=== PATIENT | male | born 1965 | race Caucasian/White ===

== ENCOUNTER 2017-03-12 18:09 | Observation (INO) ==
[2017-03-12] MEDS ORDERED: Naloxone 0.4 MG/ML INJ IVP PRN (23:18)
[2017-03-12] MEDS ORDERED: *HR* Promethazine 25 MG/ML VIAL IVP PRN (23:18)
[2017-03-12] MEDS ORDERED: Acetaminophen 325 MG TABLET PO PRN (23:18)
[2017-03-12] MEDS ORDERED: *HR* Morphine 2 MG/ML SYRINGE IVP PRN (23:18)
[2017-03-12] MEDS ORDERED: Ondansetron 4 MG/2 ML VIAL IVP PRN (23:18)
[2017-03-12] MEDS ORDERED: 0.9 % Sodium Chloride 1,000 ML IVC SCH (23:30)
--- NOTE | 2017-03-12 23:33 | Internal Med History&Physical ---
Date of Encounter: 03/12/17 Time of Encounter: 23:25 Assessment and Plan (1) Syncope Current visit: Yes Status: Acute Will place the pt into tele for observation Check serial troponin cont ASA, Statin check 2 D Echo in AM check Carotid doppler Reviewed his CT of Head, CTA of Chest Reviewed his Lbas - D- dimer is significnatly elevated - CTA - negative for PE his story is little concerned for seizure activity too will get EEG in AM Ortho stats daily Neuro checks Q4hr Qualifiers: Qualified Code(s): R55 - Syncope and collapse (2) Elevated d-dimer Current visit: Yes Status: Acute CTA negative for PE will get Venous doppler (3) Dehydration Current visit: No Status: Acute started him on IV fluids (4) HTN (hypertension) Current visit: Yes Status: Acute resumed home meds Qualifiers: Hypertension type: essential hypertension Qualified Code(s): I10 - Essential (primary) hypertension (5) DM2 (diabetes mellitus, type 2) Current visit: Yes Status: Acute resumed home meds will check HbA1C in AM Qualifiers: Qualified Code(s): E11.9 - Type 2 diabetes mellitus without complications (6) HLD (hyperlipidemia) Current visit: Yes Status: Acute Qualifiers: Hyperlipidemia type: unspecified Qualified Code(s): E78.5 - Hyperlipidemia , unspecified (7) Lymph nodes enlarged Current visit: Yes Status: Acute Noticed enlarged precarinal lymph node need f/u CT of Lung in 3-6 months Internal Medicine - H&P: HPI Chief complaint: Syncope Admitted From: Emergency Dept Plans for Post Hospital Care: Home History of present illness: Mr. Thomas is a 51 year old male with known PMH of DM2, HTN, HLD who recently had Rhino speto plasty in [facility], who was taken to [facility] by EMS after pt's found him on unresponsive for 2 minutes. As per pt and he did take a shower and then after the shower went out to the living room. He noted to his that he did not feel well and his color seemed off according to her. He then felt like he was getting have diarrhea so he went back to the bathroom on the way back to the bathroom he lay down on the ground. He had been feeling lightheaded. went into check on him in the bathroom and found him on the ground and said that he was having his eyes rolled back in his head, twitching the whole body, as well as few jerky movements and he was non responsive. Pt also felt confused for few minutes after that. He also mentioned he had long surgery , since then had b/l calf pain which resolved now. However at [facility] his D- Dimer significantly elevated. His CTA of chest did not show any PE. He was sent over out hospital for further work up. Past Med Surg Social Fam HX - Past Medical History Medical history: diabetes, GERD, hyperlipidemia, hypertension, kidney stones, other Psychiatric history: no psych history - Past Surgical History Surgical History: orthopedic, other, vasectomy - Social History Smoking Status: Never smoker Smokeless Tobacco Status: No Alcohol use: rarely Drug use: none - Family History Father Hx Family Endocrine Disorder: Yes (DIABETES MELLITUS.) Internal Medicine - H&P: Meds Aspirin [Lo-Dose Aspirin EC] 81 mg PO DAILY 03/12/17 [History] Atorvastatin [Lipitor] 40 mg PO HS 03/12/17 [History] Docusate [Colace] 100 mg PO BID PRN 03/12/17 [History] Ezetimibe [Zetia] 10 mg PO DAILY 03/12/17 [History] Lisinopril [Zestril] 40 mg PO DAILY 03/12/17 [History] Meloxicam [Mobic] 15 mg PO DAILY 03/12/17 [History] [place]-3S/Dha/Epa/Fish Oil/D3 [Fish Eay-Tbynf-6-Vit D Softgel] 1 each PO DAILY [History] Oxycodone HCl/Acetaminophen [Percocet 5-325 mg Tablet] 1 each PO Q4H PRN [History] Pantoprazole Sodium [Protonix] 20 mg PO DAILY 03/12/17 [History] Sitagliptin Phos/Metformin HCl [Janumet 50-1,000 mg Tablet] 2 each PO DAILY [History] cephALEXin [Keflex] 500 mg PO BID 03/12/17 [History] 3 Allergy/AdvReac Type Severity Reaction Status Date / Time No Known Allergies Allergy Verified 03/12/17 13:09 All Systems PM: A 10-system review of systems was performed and is negative for pertinent findings except as documented above in the HPI. Review of systems: All the systems are reviewed everything is benign except the systems and symptoms I mentioned in the history of present illness - Constitutional Vitals: Temp Pulse Resp BP Pulse Ox 98.0 F 94 16 127/84 96 03/12/17 19:55 03/12/17 19:55 03/12/17 19:55 03/12/17 19:55 03/12/17 19:55 General appearance: Present: A&O X 3, no acute distress, answers questions appropriately - Head Head exam: Present: atraumatic, normal inspection - Neck Neck exam general surgery: Present: supple - Respiratory Respiratory exam: Present: CTAB. Absent: accessory muscle use, rales, rhonchi, wheezes - Cardiovascular Cardiovascular exam: Present: RRR, +S1, +S2. Absent: diastolic murmur, gallop, rubs, systolic murmur - GI/Abdominal GI/Abdominal exam: Present: normal bowel sounds, soft, no peritoneal signs. Absent: distended, tenderness - Extremities Exam Extremities exam: Absent: calf tenderness, pedal edema, tenderness - Back Exam Back exam: Absent: CVA tenderness (L), CVA tenderness (R) - Neurological Exam Neurological exam: Present: alert, oriented X3, no focal deficits - Psychiatric Psychiatric exam: Present: normal affect, normal mood
[2017-03-13] MEDS: *HR* HYDROcodone/Acet 5/325 mg TABLET PO PRN ×2 (00:16→11:12)
[2017-03-13] MEDS: Aspirin Enteric Coated 81 MG Tablet PO SCH ×2 (00:18→11:03)
[2017-03-13] MEDS: cephALEXin 500 MG CAPSULE PO SCH ×2 (00:18→11:03)
[2017-03-13 01:21] LABS: BUN/Creatinine Ratio 13 (6-26); Blood Urea Nitrogen 11 mg/dL (8-26); Calcium 9.3 mg/dL (8.6-10.8); Carbon Dioxide 23 mEq/L (19-29); Chloride 106 mEq/L (98-109); Chol/HDL Ratio 4.9 (0-4.9); Cholesterol 131 mg/dL (< 200); Glucose 169 mg/dL (70-99); HDL Cholesterol 27 mg/dL (40-59); LDL Cholesterol,Calculated 53 mg/dL (0-99); Magnesium 1.7 mg/dL (1.6-2.6); Osmolality,Calculated 287 (280-300); Sodium 137 mEq/L (136-145); Triglycerides 254 mg/dL (< 150); eGFR For African Americans > 60 (> 60); eGFR For Non-African Americans > 60 (> 60)
[2017-03-13] MEDS ORDERED: *HR* SitaGLIPtin 100 MG TABLET PO SCH (08:00)
[2017-03-13] MEDS ORDERED: *HR* Metformin 500 MG TABLET PO SCH (08:00)
[2017-03-13] MEDS ORDERED: [UNRECOGNIZED DRUG - OTHER] PO SCH (09:00)
[2017-03-13] MEDS ORDERED: CHOLECALCIFEROL PO SCH (09:00)
[2017-03-13] MEDS ORDERED: Lisinopril 20 MG TABLET PO SCH (09:00)
[2017-03-13] MEDS ORDERED: FISH OIL PO SCH (09:00)
--- NOTE | 2017-03-13 14:55 | EEG/EMG/Oth Biometrics Report ---
EEG Procedure Report Date of procedure: 03/13/17 EEG Procedure: Routine EEG Procedure Note: This is a report of a 21 channel bipolar and referential montage EEG. A posterior dominant rhythm of 10 Hz moderate voltage alpha frequency is identified symmetrically in the posterior head regions. This rhythm attenuates symmetrically with eye opening. Hyperventilation is performed and does not significantly alter the recording. Periods of drowsiness and stage II sleep identified as reference by dropout of the posterior dominant rhythm and emergence of vertex activity K complexes, and sleep spindles. Photic stimulation is performed and does not produce a driving response. The EKG rhythm strip reveals sinus tachycardia at 102 beats per minute. Impressions: This EEG recording is within normal limits. There is no evidence of epileptiform activity identified during the study. Comment: Sinus tachycardia in 102 beats per minute is identified. A normal EEG does not preclude the diagnosis of seizure or epilepsy. If the clinical suspicion for seizure activity is high, serial EEGs or perhaps a prolonged recording may increase the yield. Please correlate clinically.
[2017-03-13 15:34] VITALS: BP 114/72
--- NOTE | 2017-03-13 17:26 | Discharge Summary ---
Date of Encounter: 03/13/17 Time of Encounter: 14:15 - Discharge Diagnosis (1) Syncope Priority: Primary Status: Acute Comments: She was found to have syncopal episode at home. Patient was one day status post rhino septoplasty. Patient took a shower after getting home, after the shower he stated that he did not feel well and according to the , he appeared to be pale. Patient states he felt like he was going to have diarrhea so he went to the bathroom, on the way to the bathroom he laid down on the ground. He reportedly had been feeling lightheaded. went into the bathroom to check on him and he was unresponsive, he was on the ground. She reports that his eyes rolled back in his head, he had twitching to his entire body. Patient also allegedly felt confused after that. D-dimer was significantly elevated in the emergency department, most likely due to surgery. Chest CTA with questionable enlarged precarinal lymph node measuring 14 mm there is no other lymphadenopathy in the chest is recommended that a repeat CT be done in 3-6 months. There is also a focal subpleural pulmonary nodule measuring almost 9 mm in the right middle lobe recommendations for follow-up based on Mak criteria include follow-up CT in 3 months. Carotid Dopplers essentially normal bilaterally. Echocardiogram with LVEF of 60-65%, normal LV DD, no evidence of PFO and no significant valvular dysfunction. EEG was normal without any epileptiform activity. Bilateral lower extremity Dopplers were normal. Patient with packing and bilateral sinuses, he is unable to breathe through his nose normally, therefore he has been breathing through his mouth. Syncopal episode most likely due to hypovolemia status post long shower and increased fluids with mouth breathing. Patient states that he feels significantly better. His labs and vitals are all stable. He no longer has dizziness. His vital signs are stable, orthostatic vital signs are negative. Labs are within normal limits. Patient is stable for discharge. Qualifiers: Syncope type: unspecified Qualified Code(s): R55 - Syncope and collapse (2) Elevated d-dimer Priority: Secondary Status: Acute Comments: Elevated d-dimer in the emergency department on admission. Most likely due to being status post lengthy maxillary sinus surgery. CTA was negative for PE, bilateral lower extremity Dopplers are negative. (3) HTN (hypertension) Priority: Secondary Status: Chronic Comments: Chronic. Continue home medications. Qualifiers: Hypertension type: essential hypertension Qualified Code(s): I10 - Essential (primary) hypertension (4) DM2 (diabetes mellitus, type 2) Priority: Secondary Status: Acute Comments: Patient has no available A1c. Continue normal home medications after discharge. Continue normal Accu-Chek regimen. Qualifiers: Diabetes mellitus complication status: without complication Diabetes mellitus custodial insulin use: without custodial use Qualified Code(s): E11.9 - Type 2 diabetes mellitus without complications (5) HLD (hyperlipidemia) Priority: Secondary Status: Chronic Comments: Chronic. Continue home medications. Qualifiers: Hyperlipidemia type: unspecified Qualified Code(s): E78.5 - Hyperlipidemia , unspecified (6) Lymph nodes enlarged Priority: Secondary Status: Acute Comments: Plan as above. (7) DVT prophylaxis Priority: Primary Status: Acute Comments: Patient has been a . Observation status. - Discharge Medications Home Medications: Aspirin [Lo-Dose Aspirin EC] 81 mg PO DAILY 03/12/17 [History] Atorvastatin [Lipitor] 40 mg PO HS 03/12/17 [History] Docusate [Colace] 100 mg PO BID PRN 03/12/17 [History] Ezetimibe [Zetia] 10 mg PO DAILY 03/12/17 [History] Lisinopril [Zestril] 40 mg PO DAILY 03/12/17 [History] Meloxicam [Mobic] 15 mg PO DAILY 03/12/17 [History] [place]f-3S/Dha/Epa/Fish Oil/D3 [Fish Fhn-Gcgay-1-Vit D Softgel] 1 each PO DAILY [History] Oxycodone HCl/Acetaminophen [Percocet 5-325 mg Tablet] 1 each PO Q4H PRN [History] Pantoprazole Sodium [Protonix] 20 mg PO DAILY 03/12/17 [History] Sitagliptin Phos/Metformin HCl [Janumet 50-1,000 mg Tablet] 2 each PO DAILY [History] cephALEXin [Keflex] 500 mg PO BID 03/12/17 [History] Allergies/Adverse Reactions: 3 Allergy/AdvReac Type Severity Reaction Status Date / Time No Known Allergies Allergy Verified 03/12/17 13:09 Procedures/tests Complete & Pending: Procedures Performed prior 72 hours Category Date Time Status EV carotid duplex imaging BI Routine Y 03/13/17 23:22 Completed EV echo with saline Routine Y 03/13/17 23:22 Completed EV venous imaging LE BI Routine Y 03/13/17 23:21 Completed Date of admission: 03/12/17 19:48 Primary care physician: PCP NONE Consults: 03/13/17 11:20 Consult to Interpret Exam [CONS] Routine Consulting Provider: Nathan Ramon Consult to Interpret Exam: Interpret EEG Discharging clinician: Enedelia Scott Anticipated date of discharge: 03/13/17 - Patient Status Disposition: Home, Self-Care Condition: Good - Discharge Instructions Follow Up With: NONE,PCP [Primary Care Provider] - Silva Otto MD [Family Provider] - Additional Instructions: Please follow up with primary care in the next 7-10 days for recheck. Please resume your normal home medications. Please resume his normal activities as tolerated. Follow-up with her surgeon for packing removal. Return to the emergency department as needed for any problems or concerns, or if symptoms return or worsen. Picture you are drinking plenty of fluids daily. - Diet and Activity Activity: increase activity as tolerated Diet: advance to your usual diet Hospital course: Mr. Thomas is a 51 year old male with syncopal episode at home. He was found by his in the bathroom floor. He is status post sinus surgery. Single episode was most likely due to hypovolemia, dehydration. All testing was negative. Carotids were normal bilaterally, echo showed preserved function and normal wall motion. Troponins were negative. EEG was negative for any epileptic form activity. Patient arrived with a significantly elevated d-dimer , CT was negative for PE. Head CT was negative for any acute intracranial abnormality, as well. Labs have been stable and within normal limits, has labs were within normal limits. No signs of dehydration on labs. Patient appears to be euvolemic and is taking by mouth fluids well. No nausea or vomiting, no headache, blurred vision, dizziness, chest pain. Patient is stable for discharge. - Time Spent with Patient Total time spent providing and/or coordinating discharge services: Less than 30 minutes - Constitutional Vitals: Temp Pulse Resp BP Pulse Ox 98.0 F 101 16 114/72 94 03/13/17 15:33 03/13/17 15:33 03/13/17 15:33 03/13/17 15:33 03/13/17 15:33 General appearance: Present: cooperative, A&O X 3, pleasant, no acute distress, answers questions appropriately - Head Head exam: Present: atraumatic, normal inspection, normocephalic - Eye Eye exam: Present: normal appearance, conjuntiva pink, sclera anicteric - Neck Neck exam general surgery: Present: supple, trachea midline. Absent: lymphadenopathy - Respiratory Respiratory exam: Present: CTAB. Absent: accessory muscle use, rales, rhonchi, wheezes - Cardiovascular Cardiovascular exam: Present: RRR, +S1, +S2. Absent: diastolic murmur, gallop, rubs, systolic murmur - GI/Abdominal GI/Abdominal exam: Present: normal bowel sounds, soft, no peritoneal signs. Absent: distended, hepatomegaly, tenderness - Extremities Exam Extremities exam: Present: normal capillary refill, warm, radial pulses palpable and symmetrical. Absent: calf tenderness, cyanotic, normal inspection , pedal edema - Neurological Exam Neurological exam: Present: alert, oriented X3, no focal deficits. Absent: facial droop, speech deficit - Skin Skin exam: Present: dry, intact, normal color, warm. Absent: urticaria
== END 2017-03-13 18:37 | disposition home or self-care (01) ==
LOC: 3BNU
PROVIDERS: ADMIT Family Medicine; ATTEND Registered Nurse

== ENCOUNTER 2020-11-13 16:31 | Inpatient (IN) ==
[2020-11-13 17:12] LABS: Hemoglobin 11.9 g/dL (12.9-16.9); Immature Granulocytes % 0.4 % (0-4)
[2020-11-13 17:14] LABS: Basophils % 0.4 %; Hematocrit 35.1 % (37.5-50.1); Immature Platelets 5.1 % (1.1-6.1); Lymphocytes # 0.8 K/mcL (0.6-4.6); Lymphocytes % 29.6 %; Mean Corpuscular HGB Conc 33.9 g/dL (31.6-35.5); Mean Corpuscular Hemoglobin 30.1 pg (28.0-33.3); Mean Corpuscular Volume 88.6 fL (83.0-100.0); Mean Platelet Volume 11.2 fL (9.4-12.4); Monocytes # 0.3 K/mcL (0.0-1.3); Monocytes % 10.6 %; Neutrophils # 1.6 K/mcL (1.6-8.9); Platelet Count 139 K/mcL (140-400); Red Blood Count 3.96 M/mcL (4.19-5.50); Red Cell Distribution Width 13.2 % (11.5-14.5); White Blood Count 2.7 K/mcL (4.3-11.1)
[2020-11-13] MEDS: 0.9 % Sodium Chloride 1,000 ML IVC SCH ×2 (17:21→18:01)
[2020-11-13 18:44] LABS: Blood Urea Nitrogen 114 mg/dL (6-20); Calcium 8.1 mg/dL (8.6-10.3); Carbon Dioxide 15 mEq/L (23-29); Chloride 101 mEq/L (98-107); Glucose 167 mg/dL (70-105); Osmolality,Calculated 312 (280-300); Potassium 4.7 mEq/L (3.5-5.1); Sodium 131 mEq/L (136-145)
[2020-11-13 18:54] LABS: BUN/Creatinine Ratio 25 (6-26); Troponin I < 0.03 ng/mL (< 0.04); eGFR For African Americans 17 (> 60); eGFR For Non-African Americans 14 (> 60)
[2020-11-13 19:32] LABS: Bilirubin,Urine Negative (Negative); Blood,Urine Small (Negative); Clarity,Urine Clear (Clear); Color,Urine Light-Yellow (Yellow); Glucose,Urine (UA) Normal (Normal); Hyaline Casts,Urine Few per lpf (None Seen); Ketones,Urine Negative (Negative); Leukocyte Esterase,Urine Negative (Negative); Mucus,Urine Few per lpf (None-Few); Nitrite,Urine Negative (Negative); PH,Urine 5.5 pH Units (5.0-8.0); Protein,Urine Trace mg/dL (Neg-Trace); RBC,Urine 0-3 per hpf (0-3); Specific Gravity,Urine 1.014 (1.010-1.025); Squamous Epithelial Cell,Urine Few per hpf (None-Few); Urobilinogen,Urine Normal (Normal); WBC,Urine 0-3 per hpf (0-3)
[2020-11-13] MEDS ORDERED: Melatonin 3 MG TABLET PO PRN (20:36)
[2020-11-13] MEDS ORDERED: Acetaminophen 325 MG TABLET PO PRN (20:36)
[2020-11-13] MEDS ORDERED: Naloxone 0.4 MG/ML INJ IVP PRN (20:36)
[2020-11-13] MEDS ORDERED: *HR* HYDROcodone/Acet 5/325 mg TABLET PO PRN (20:36)
[2020-11-13] MEDS ORDERED: Ondansetron 4 MG/2 ML VIAL IVP PRN (20:36)
[2020-11-13] MEDS ORDERED: 0.9 % Sodium Chloride 1,000 ML IVC ONE (20:42)
[2020-11-13] MEDS ORDERED: Ipratropium 1 PUFF INHALER IH PRN (20:43)
[2020-11-13] MEDS ORDERED: Ipratropium 1 PUFF INHALER IH SCH (22:00)
[2020-11-13] MEDS ORDERED: Dextrose Gel 15 GM/37.5 ML TUBE PO PRN ×2 (23:24)
[2020-11-13] MEDS ORDERED: *HR* Dextrose 50 % in Water (Vial) 50 ML VIAL IVP PRN (23:24)
[2020-11-13] MEDS ORDERED: D5% in Water 1,000 ML IVC PRN (23:24)
[2020-11-13 23:34] LABS: D-Dimer 702 ng/mLFEU (0-500)
[2020-11-13 23:35] LABS: Fibrinogen 524 mg/dL (169-393)
[2020-11-13] MEDS: Ipratropium 1 PUFF INHALER IH SCH (23:36)
[2020-11-13 23:42] LABS: Complement C3 134 mg/dL (87-200)
[2020-11-13 23:55] LABS: C-Reactive Protein 14 mg/L (Less than 10); Creatine Kinase 1359 Units/L (30-223); Magnesium 2.1 mg/dL (1.6-2.6); Phosphorous 5.8 mg/dL (2.7-4.5)
[2020-11-14] MEDS: Insulin LISPRO 300 UNITS/3 ML VIAL SUBQ SCH ×4 (02:57→16:37)
[2020-11-14] MEDS: Ipratropium 1 PUFF INHALER IH SCH ×5 (04:46→20:29)
[2020-11-14] MEDS: *HR* Enoxaparin 40 MG/0.4 ML SYRINGE SQ SCH (06:49)
[2020-11-14 07:23] LABS: Mean Platelet Volume 10.1 fL (9.4-12.4)
[2020-11-14 07:24] LABS: Hemoglobin 10.6 g/dL (12.9-16.9); Mean Corpuscular HGB Conc 34.2 g/dL (31.6-35.5); Mean Corpuscular Hemoglobin 30.7 pg (28.0-33.3); Mean Corpuscular Volume 89.9 fL (83.0-100.0); Platelet Count 164 K/mcL (140-400); Red Blood Count 3.45 M/mcL (4.19-5.50); Red Cell Distribution Width 13.3 % (11.5-14.5); White Blood Count 1.7 K/mcL (4.3-11.1)
[2020-11-14 07:43] LABS: Albumin 3.5 g/dL (3.5-5.7); Albumin/Globulin Ratio 1.3 (1.1-2.2); Bilirubin,Direct 0.1 mg/dL (0.0-0.2); Bilirubin,Indirect 0.3 mg/dL (0.0-1.0); Bilirubin,Total 0.4 mg/dL (0.3-1.0); Globulin 2.6 g/dL (2.4-3.5); Total Protein 6.1 g/dL (6.4-8.9)
[2020-11-14 07:46] LABS: Albumin 3.5 g/dL (3.5-5.7); Albumin/Globulin Ratio 1.3 (1.1-2.2); Bilirubin,Total 0.4 mg/dL (0.3-1.0); Globulin 2.7 g/dL (2.4-3.5); Potassium 4.9 mEq/L (3.5-5.1); Total Protein 6.2 g/dL (6.4-8.9)
[2020-11-14] MEDS: Pantoprazole 40 MG VIAL IVP SCH (08:36)
[2020-11-14 08:48] LABS: Calcium 7.9 mg/dL (8.6-10.3)
[2020-11-14 14:58] LABS: Bacteria,Urine Few per hpf (None-Few); Bilirubin,Urine Negative (Negative); Blood,Urine Trace (Negative); Clarity,Urine Clear (Clear); Color,Urine Colorless (Yellow); Glucose,Urine (UA) Normal (Normal); Ketones,Urine Negative (Negative); Leukocyte Esterase,Urine Negative (Negative); Mucus,Urine Few per lpf (None-Few); Nitrite,Urine Negative (Negative); PH,Urine 5.5 pH Units (5.0-8.0); Protein,Urine Trace mg/dL (Neg-Trace); RBC,Urine 0-3 per hpf (0-3); Specific Gravity,Urine 1.014 (1.010-1.025); Squamous Epithelial Cell,Urine Few per hpf (None-Few); Urobilinogen,Urine Normal (Normal); WBC,Urine 0-3 per hpf (0-3)
[2020-11-14 15:05] LABS: Protein/Creatinine Ratio,Urine 0.44 mg/mg (0.00-0.20)
[2020-11-14] MEDS ORDERED: Remdesivir 200 MG in 0.9 % Sodium Chloride 100 ML IVPB ONE (18:25)
[2020-11-14] MEDS ORDERED: Ringers Solution, Lactated 1,000 ML IVC SCH (18:30)
[2020-11-15] MEDS: Ipratropium 1 PUFF INHALER IH SCH ×4 (00:10→11:46)
[2020-11-15] MEDS: Insulin LISPRO 300 UNITS/3 ML VIAL SUBQ SCH ×3 (04:56→12:04)
[2020-11-15] MEDS: *HR* Enoxaparin 40 MG/0.4 ML SYRINGE SQ SCH (05:36)
[2020-11-15 07:50] LABS: Hematocrit 29.5 % (37.5-50.1); Hemoglobin 10.1 g/dL (12.9-16.9); Immature Granulocytes % 0.3 % (0-4); Lymphocytes # 0.8 K/mcL (0.6-4.6); Lymphocytes % 23.3 %; Mean Corpuscular HGB Conc 34.2 g/dL (31.6-35.5); Mean Corpuscular Hemoglobin 30.8 pg (28.0-33.3); Mean Corpuscular Volume 89.9 fL (83.0-100.0); Mean Platelet Volume 10.4 fL (9.4-12.4); Monocytes # 0.3 K/mcL (0.0-1.3); Monocytes % 7.6 %; Platelet Count 181 K/mcL (140-400); Red Blood Count 3.28 M/mcL (4.19-5.50); Red Cell Distribution Width 13.2 % (11.5-14.5); Segmented Neutrophils % 68.8 %
[2020-11-15 07:51] LABS: Neutrophils # 2.3 K/mcL (1.6-8.9); White Blood Count 3.4 K/mcL (4.3-11.1)
[2020-11-15] MEDS: Pantoprazole 40 MG VIAL IVP SCH (08:13)
[2020-11-15 08:15] LABS: Alanine Aminotransferase 25 Units/L (7-52); Albumin 3.4 g/dL (3.5-5.7); Albumin/Globulin Ratio 1.4 (1.1-2.2); Alkaline Phosphatase 51 Units/L (34-104); Aspartate Amino Transferase 33 Units/L (13-39); BUN/Creatinine Ratio 37 (6-26); Bilirubin,Indirect 0.4 mg/dL (0.0-1.0); Bilirubin,Total 0.4 mg/dL (0.3-1.0); Blood Urea Nitrogen 49 mg/dL (6-20); Carbon Dioxide 21 mEq/L (23-29); Chloride 111 mEq/L (98-107); Globulin 2.4 g/dL (2.4-3.5); Glucose 231 mg/dL (70-105); Lactate Dehydrogenase 281 Units/L (140-271); Magnesium 1.7 mg/dL (1.6-2.6); Osmolality,Calculated 308 (280-300); Phosphorous 2.6 mg/dL (2.7-4.5); Potassium 4.9 mEq/L (3.5-5.1); Prothrombin Time 11.5 Seconds (9.4-12.1); Sodium 139 mEq/L (136-145); Total Protein 5.8 g/dL (6.4-8.9); eGFR For African Americans > 60 (> 60); eGFR For Non-African Americans 56 (> 60)
[2020-11-15 08:29] LABS: Ferritin 967 ng/mL (20-250)
[2020-11-15] MEDS ORDERED: Cholecalciferol (D-3) 1,000 UNIT (25MCG) TABLET PO SCH (09:00)
[2020-11-15] MEDS ORDERED: *HR* Metformin 500 MG TABLET PO SCH (09:00)
[2020-11-15] MEDS ORDERED: Aspirin Enteric Coated 81 MG Tablet PO SCH (09:00)
[2020-11-15] MEDS ORDERED: atenoloL 25 MG TABLET PO SCH (09:00)
[2020-11-15 10:56] LABS: C-Reactive Protein < 5 mg/L (Less than 10); Calcium 8.4 mg/dL (8.6-10.3)
[2020-11-15 11:20] VITALS: BP 120/67; PULSE 90; TEMP 98.5; O2SAT 95
[2020-11-15] MEDS ORDERED: Remdesivir 100 MG in 0.9 % Sodium Chloride 100 ML IVPB SCH (19:00)
[2020-11-16 09:57] LABS: ANA IgG by ELISA NONE DETECTED (None Detected)
[2020-11-17 17:00] LABS: CK-BB (CK isoenzymes) 0 % (0-0); CK-MB (CK isoenzymes) 0 % (0-4); CK-MM (CK-isoenzymes) 100 % (96-100)
[2020-11-17 18:22] LABS: ANCA IFA Titer <1:20 (<1:20)
[2020-11-19 15:06] LABS: ANCA IFA Pattern NONE DETECTED (None Detected); Serine Protease-3 Antibody 2 AU/mL (0-19)
[2020-11-19 15:07] LABS: CK Total (Ck Isoenzymes) 1266 U/L (20-200)
== END 2020-11-15 14:45 | disposition home or self-care (01) | DRG 177 ==
LOC: EMEROOARM 16:31 → 2NENU 16:31 → SUATTDRO 20:10 → OBSVTOIN 20:10 → 2NENU 21:55
PROVIDERS: ADMIT Family Medicine; ATTEND Internal Medicine